=== PATIENT | female | born 1980 | race Caucasian/White ===

== ENCOUNTER → 2016-11-10 | Outpatient (CLI) | payer BC ==
[~2016-11-10] MED LIST: BCPILLS PO; MULTTAB58 PO
--- NOTE | 2016-11-10 14:47 | MAMMOGRAPHY REPORT ---
BILATERAL DIGITAL DIAGNOSTIC MAMMOGRAM TOMOSYNTHESIS WITH CAD: 11/10/2016 CLINICAL HISTORY: The patient reports nonfocal bilateral intermittent burning breast pain for approxi mately 2 weeks. She denies any associated palpable lump, nipple discharge, or other symptoms. TECHNIQUE: Breast tomosynthesis in addition to standard 2D mammography was performed. Current study was also evaluated with a Computer Aided Detection (CAD) system. Bilateral CC and MLO 2-D and tomosy nthesis images were obtained. COMPARISON: No prior exams were available for comparison. BREAST COMPOSITION: There are scattered areas of fibroglandular density in both breasts. FINDINGS: There are no suspicious masses, calcifications, or areas of architectural distortion noted in either breast. As the pain is nonfocal and diffuse bilaterally, targeted ultrasound was not perf ormed. IMPRESSION: ACR BI-RADS CATEGORY 1: NEGATIVE There is no mammographic evidence of malignancy in either breast. Recommend clinical follow-up for b ilateral intermittent breast pain, and recommend routine bilateral screening mammograms starting at t he age of 40 unless otherwise clinically indicated. The patient has been verbally notified of the results. Approximately 10% of breast cancers are not detected with mammography. A negative mammographic report should not delay biopsy if a clinically suggestive mass is present. Sonja Dunham M.D. ah/:11/10/2016 10:12:37 Textile Engineer: Sharmila ATYLOR)(Srinivas), [facility] letter sent: Normal 1/2 BI-RADS Code: ACR BI-RADS Category 1: Negative
== END | disposition home or self-care (01) ==
LOC: C.MAMM 09:34
PROVIDERS: ATTEND Physician Assistant
DX: N64.4 Mastodynia (principal)

== ENCOUNTER → 2016-11-26 | Outpatient (CLI) | payer BC ==
--- NOTE | 2016-11-26 12:49 | DIAGNOSTIC IMAGING REPORT ---
RIGHT SHOULDER MIN 2 VIEWS CLINICAL HISTORY: RIGHT SHOULDER PAIN Right trauma. Pain. COMPARISON: None. DISCUSSION: The bones and joint spaces appear intact. There is no evidence of fracture, dislocation or bony disease. There is no evidence for soft tissue swelling. IMPRESSION: Negative study. Electronically signed by: Yobani Kirby M.D. 11/26/2016 12:47 PM Dictated Date/Time: 11/26/2016 12:47 PM
== END | disposition home or self-care (01) ==
LOC: C.RDSM 14:50
PROVIDERS: ATTEND Physician Assistant
DX: M25.511 Pain in right shoulder (principal)

== ENCOUNTER → 2017-05-12 | Day surgery (SDC) | payer BC ==
[2017-05-11 11:49] VITALS: Ht 165.1 cm; Wt 86.4 kg
--- NOTE | 2017-05-11 15:42 | History and Physical: Surg Cnt ---
History & Physical Date May 11, 2017. Chief Complaint sinusitis History of Present Illness The patient is a 36 year old female with complaints of chronic sinusitis s/p surgery by santana Steele Additional History Hepatic Disease: No Endocrine Disorder: No Kidney Disease: No Hypertension: No Heart Disease: No Bleeding Tendencies: No Infectious Diseases: No Allergies Coded Allergies: Indomethacin (Verified Allergy, Unknown, SHORTNESS OF BREATH, 05/11/17) Yeast (Verified Allergy, Unknown, INCREASES INFLAMMATION, 05/11/17) Home Medications Scheduled Azelastine HCl-Fluticasone Pro (Dermacinrx Azenase Usama 137 & 50 Mcg/Act), 1 SPRAY NA HS Cetirizine Hcl (Zyrtec), 10 MG PO HS Levonorgestrel (Iud) (Mirena), 1 DOSE PV UD Multiple Vitamin (Multivitamin), 1 TAB PO QPM Physical Examination Skin: warm/dry, no rash Eyes: normal inspection, EOMI, sclerae normal ENT: normal ENT inspection, pharynx normal Head: normocephalic, atraumatic Neck: supple, no adenopathy, trachea midline Respiratory/Chest: lungs clear, normal breath sounds, no respiratory distress Cardiovascular: regular rate, rhythm, no edema, no murmur Abdomen / GI: normal bowel sounds, non tender Back: normal inspection Extremities: normal inspection, normal range of motion Neurologic/Psych: no motor/sensory deficits, alert, normal reflexes, oriented x 3 Diagnosis chronic sinusitis Plan of Treatment endoscopic sinus surgery
[~2017-05-12] VITALS: Ht 165.1 cm; Wt 86.4 kg
[~2017-05-12] MED LIST changes: +ATROPINE SULFATE 0.1 MG/ML 5ML SYR IV PRN; +AZEL1.5M; +AZIT250T PO; -BCPILLS PO; +CEFAZOLIN 1000MG IV PUSH 5 ML IV SCH; +CEFAZOLIN SOD 1 GM VIAL ONE; +CETI10TA10 PO; +DEXAMETHASONE SOD INJ 4 MG/ML VIAL ONE; +EpHEDrine SULFATE INJ 50 MG/ML AMP IV PRN; +EpINEphrine INJ 1MG/ML AMP 1 MG/ML AMP ONE; +FENTANYL CITRATE INJ 50 MCG/1 ML 2 ML VIAL IV PRN; +FENTANYL CITRATE INJ 50 MCG/1 ML 2 ML VIAL ONE; +GLYCOPYRROLATE INJ 0.2 MG/ML VIAL ONE; +HYDROmorphone INJ 1 MG/ML SYR IV PRN; +LACTATED RINGER'S 1000ML 1,000 ML IV SCH; +LEVO1IUD2 PV; +LIDO 2%/EPINEPHRINE 1:100000 20 ML VIAL INFIL ONE; +LIDOCAINE 4% MPF SOAK 5 ML = 1 DOSE TOP ONE; +LIDOCAINE HCL 2% 2 ML VIAL (20MG/ML) ONE; +METH4PAK PO; +MIDAZOLAM HCL 1 MG/ML 2ML VIAL ONE; +NAPR1TAB9 PO; +NEOSTIGMINE METHYLSULFATE 5 MG/5 ML SYR ONE; +ONDANSETRON INJ 2 MG/ML 2 ML VIAL IV PRN; +ONDANSETRON INJ 2 MG/ML 2 ML VIAL ONE; +OXYC-57 PO; +OXYCODONE/ACETAMINOPHEN 5-325 TAB PO PRN; +PATIENT'S HEIGHT AND/OR WEIGHT NEEDED SCH; +PROPOFOL IV EMULSION 10 MG/ML 20 ML VIAL IV ONE; +SODIUM CHLORIDE 0.9% 1000ML 1,000 ML IV SCH; +SODIUM CHLORIDE 0.9% INJ 10 ML VIAL ONE
--- NOTE | 2017-05-12 11:38 | History & Physical Bridge Note ---
H&P Re-Evaluation Bridge Note: I have examined the patient, reviewed the History & Physical and in the interval since the performance of the History & Physical I have noted the following changes of clinical significance: No changes noted
--- NOTE | 2017-05-12 13:51 | [facility] Post Operative Brief Note ---
Immediate Operative Summary Operative Date May 12, 2017. Pre-Operative Diagnosis Chronic Sinusitis Post-Operative Diagnosis Same Procedure(s) Performed R and L frontal, total ethmoid and maxillary sinusotomies Surgeon Dr. Esteban Clinical Trial Associate Surgeon(s) None Estimated Blood Loss 30ML Findings osteitis with stenosis, missed maxillary ostia syndrome Specimens None Anesthesia GET Complication(s) None Disposition Recovery Room / PACU
--- NOTE | 2017-05-12 13:54 | Discharge Instructions-SurgCtr ---
Discharge Instructions Date of Service May 12, 2017. Visit Reason for Visit: Chronic Sinusitis Discharge Discharge Diagnosis / Problem: same Discharge Goals Goal(s): Improve function Activity Recommendations Activity Limitations: resume your previous activity Anesthesia . Post Anesthesia Instructions: If you have had General Anesthesia or IV Sedation: * Do not drive today. * Resume driving when surgeon permits. * Do not make important decisions or sign legal documents today. * Call surgeon for: 1. Temperature elevations greater than 101 degrees F. 2. Uncontrollable pain. 3. Excessive bleeding. 4. Persistent nausea and vomiting. 5. Medication intolerance (nausea, vomiting or rash). * For nausea and vomiting use only clear liquids such as: tea, soda, bouillon until nausea subsides, then gradually increase diet as tolerated. * If you have any concerns or questions, call your surgeon's office. If physician is unavailable and it is an emergency, call 911 or go to the nearest emergency room. . Diet Recommendations Home Diet: no limitations Procedures Procedures Performed: R and L frontal, total ethmoid and maxillary sinusotomies Pending Studies Studies pending at discharge: no Medical Emergencies . Who to Call and When: Medical Emergencies: If at any time you feel your situation is an emergency, please call 911 immediately. . Non-Emergent Contact Non-Emergency issues call your: Primary Care Provider . . "Provider Documentation" section prepared by Cady Esteban. . [place] Drug Monitoring Program Search Results: no issues identified
[2017-05-12 14:45] VITALS: TEMP 37
[2017-05-12 15:16] VITALS: BP 117/76; PULSE 68; O2SAT 96
--- NOTE | 2017-05-12 15:28 | Anesthesiology Progress Note ---
Anesthesia Post Op Note Date & Time May 12, 2017 at 15:27 Vital Signs Pain Intensity: 0 Vital Signs Past 12 Hours Date Time Temp Pulse Resp B/P (MAP) Pulse Ox O2 Delivery O2 Flow Rate FiO2 05/12/17 15:16 68 20 117/76 (90) 96 Room Air 05/12/17 14:45 37.0 65 18 115/74 (88) 96 Room Air 05/12/17 14:36 36.9 83 14 133/76 95 Room Air 05/12/17 14:36 76 15 05/12/17 14:36 74 15 133/76 96 05/12/17 14:31 74 15 118/74 95 05/12/17 14:31 75 15 05/12/17 14:26 75 24 05/12/17 14:26 76 24 119/74 100 05/12/17 14:21 68 12 120/71 100 05/12/17 14:21 68 12 05/12/17 14:16 73 14 120/76 100 05/12/17 14:16 74 14 05/12/17 14:11 70 10 120/71 100 05/12/17 14:11 71 10 05/12/17 14:06 75 26 128/70 100 05/12/17 14:06 74 26 05/12/17 14:01 73 10 121/71 100 05/12/17 14:01 74 10 05/12/17 13:56 82 21 125/71 100 05/12/17 13:56 82 21 05/12/17 13:51 86 16 137/75 100 05/12/17 13:51 86 16 05/12/17 13:46 93 16 05/12/17 13:46 94 16 129/68 100 05/12/17 13:42 126/75 05/12/17 13:41 106 05/12/17 13:41 36.5 100 8 126/75 100 Humidified Oxygen 6 Mask 05/12/17 13:41 106 100 05/12/17 10:04 36.9 75 18 117/77 (90) 98 Room Air Notes Mental Status: alert / awake / arousable, participated in evaluation Pt Amnestic to Procedure: Yes Nausea / Vomiting: adequately controlled Pain: adequately controlled Airway Patency, RR, SpO2: stable & adequate BP & HR: stable & adequate Hydration State: stable & adequate Anesthetic Complications: no major complications apparent
--- NOTE | 2017-05-12 15:32 | OPERATIVE REPORT ---
DATE OF OPERATION: 05/12/2017 PREOPERATIVE DIAGNOSIS: Chronic sinusitis. POSTOPERATIVE DIAGNOSIS: Same. PROCEDURE: Right and left frontal, right and left total ethmoid and right and left maxillary sinus antrostomy. SURGEON: Dr. Esteban. ANESTHESIA: General endotracheal. COMPLICATIONS: None. BLOOD LOSS: 30 mL. HISTORY: This 36-year-old lady presented with chronic sinusitis. She had previously had maxillary sinusotomy and ethmoidectomy twice by another surgeon. Most recent was in 03/06/2017. She developed severe headaches in the frontal region and recurrent episodes of sinusitis. CT scan again documented sinusitis and endoscopy showed adhesions and polyps blocking the ostiomeatal complex and also blocking the nasal frontal ducts. PROCEDURE: The patient brought to the operating room and placed in supine position and general endotracheal anesthesia was induced, prepped, draped in usual sterile manner. [employer] device calibrated and used for the entire procedure. The left nasofrontal duct was cannulated with guidewire and dilated using the 6 mm balloon with [employer] computer guidance. The guidewire was left in place as a marker as the balloon was withdrawn. Frontal sinusotomy was performed by removing the anterior wall and then the posterior wall of the agger nasi cell with the shaver coupled with the [employer] guidance system. The mucosa in the nasofrontal duct was left intact. There were multiple residual air cells and significant amount osteitis and adhesions blocking all the ethmoids. Therefore, the posterior most ethmoid air cells was identified and then the skull base and lamina papyracea were identified with the [employer] device These structures were followed anteriorly exonerating all the posterior and all the anterior ethmoid air cells removing a significant amount of scar tissue, adhesions and significant amount of osteitis. 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 The primary ostia was located using the seeker and then opened and connected to the antrostomy opening using the backbiting forceps and then using the shaver to create a 1 common cavity. The right frontal sinusotomy, total ethmoidectomy, and maxillary sinus antrostomy was performed in a similar manner. The contour stents were placed in the nasofrontal ducts. The patient tolerated the procedure well and was taken to recovery area in satisfactory condition. I attest to the content of the Intraoperative Record and any orders documented therein. Any exception s are noted below.
== END | disposition home or self-care (01) ==
LOC: X.SURG 09:42
PROVIDERS: ATTEND Otolaryngology
DX: J32.9 Chronic sinusitis, unspecified (principal)

== ENCOUNTER → 2017-09-30 | Day surgery (SDC) | payer OTHER ==
[2017-09-23 10:09] VITALS: Ht 165.1 cm; Wt 86.4 kg
[~2017-09-30] VITALS: Ht 165.1 cm; Wt 86.4 kg
[~2017-09-30] MED LIST changes: -AZIT250T PO; +BUPIVACAINE 0.5 % 5 MG/1 ML MPF 30ML VIAL ONE; -CEFAZOLIN 1000MG IV PUSH 5 ML IV SCH; +CEFAZOLIN 2000MG IV PUSH 15 ML IV SCH; -CEFAZOLIN SOD 1 GM VIAL ONE; -EpHEDrine SULFATE INJ 50 MG/ML AMP IV PRN; +EpINEphrine HCL INJ 1 MG/ML 1ML SYRINGE ONE; -HYDROmorphone INJ 1 MG/ML SYR IV PRN; -LIDO 2%/EPINEPHRINE 1:100000 20 ML VIAL INFIL ONE; -LIDOCAINE 4% MPF SOAK 5 ML = 1 DOSE TOP ONE; +LIDOCAINE/EPINEPHRINE 1% 20 ML VIAL ONE; -METH4PAK PO; +MoRPHine SULFATE 4 MG/ML 1 ML CARP\\VIAL IV PRN; -OXYC-57 PO; -PATIENT'S HEIGHT AND/OR WEIGHT NEEDED SCH; -PROPOFOL IV EMULSION 10 MG/ML 20 ML VIAL IV ONE; +PROPOFOL IV EMULSION 10 MG/ML 20 ML VIAL ONE; +ROCURONIUM BROMIDE 10 MG/ML 5 ML VIAL ONE; +ROPIVACAINE 0.5% 5 MG/ML 30 ML VIAL ONE; -SODIUM CHLORIDE 0.9% 1000ML 1,000 ML IV SCH; -SODIUM CHLORIDE 0.9% INJ 10 ML VIAL ONE
--- NOTE | 2017-09-30 12:48 | [facility] Post Operative Brief Note ---
Immediate Operative Summary Operative Date September 30, 2017. 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 2) Coricoidplasty. 3) SubAcromial Decompression. 4) Open Distal Clavicle Excision. 5) Exam Under Anesthesia Surgeon Dr. Silva Chronometer Tester Surgeon(s) Bud Laureano, PA-C Estimated Blood Loss 11ML Findings Consistent with Post-Op Diagnosis Fluids (cc crystalloids) 1500 Specimens A. Right Shoulder Distal Clavicle Drains None Anesthesia Type General Regional Complication(s) none Disposition Disposition: Recovery Room / PACU (Stable)
--- NOTE | 2017-09-30 12:49 | [facility] Operative Report ---
Operative Report Operative Date September 30, 2017. 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 2) Coricoidplasty. 3) SubAcromial Decompression. 4) Open Distal Clavicle Excision. 5) Exam Under Anesthesia Surgeon Dr. Silva King Maker Surgeon(s) Bud Laureano, LUNA Estimated Blood Loss 11ML Findings The Right shoulder was then examined under anesthesia and it exhibited: Forward flexion and abduction to 160; external rotation 95; internal rotation 60. There was no noted instability. Posterior and anterior translation was 1+ and they had no sulcus sign and was symmetric to their other side. The diagnostic arthroscopy commenced with the following findings: 1. The biceps anchor there was fraying, SLAP type I tear. 2. The anterior labrum was intact. 3. The inferior labrum was intact. 4. The inferior pouch showed no loose bodies. 5. The posterior labrum was intact. 6. The articular surface of the glenoid had some type II changes. 7. The articular surface of humeral head was intact. 8. The long Head of the Biceps was normal. 9. The Subscapularis tendon had some fraying superiorly, there was limited space between the coracoid and the subscapularis. 10. The Supraspinatus tendon was intact. 11. The Infraspinatus and Teres Minor were normal. 12. The Subacromial space showed bursitis and a bony spur anteriorly. Fluids 1500 Specimens A. Right Shoulder Distal Clavicle Drains None Anesthesia Type General Regional Complication(s) none Disposition Recovery Room / PACU (Stable) Indications This is a pleasant 36-year-old female who has been having long-standing right anterior shoulder pain at the AC joint and coracoid that has failed conservative management. They have MRI and clinical findings suggestive of AC joint arthritis, possible SLAP tear, coracoid/subacromial impingement. After a lengthy discussion regarding their options of conservative versus operative management, they have elected to proceed with surgery. The risks of surgery were discussed and include but not limited to: Infection, bleeding, nerve damage , continued pain, progression of arthritis, stiffness, decreased level of activity, and deep vein thrombosis. The patient understood all of their options and the risks of surgery and would like to proceed. The informed consent was signed. Description of Procedure The patient was taken to the operating room and following administration of her interscalene nerve block and general anesthetic, a multidisciplinary time-out was performed identifying my initials on the right shoulder as the correct and operative limb. The patient was then placed in beach chair position with all of their bony prominences well-padded. They were then prepped and draped in the usual orthopedic sterile fashion. All of the bony landmarks were marked as well as the planned incisions. The planned incisions were injected with a 50:50 mixture of 0.5% Marcaine plain and 1% Lidocaine with Epinephrine for a total of 10 cc. Then using a spinal needle which was placed intra-articularly into the glenohumeral joint and insufflated to 35 cc and there was noted appropriate back flow, an additional 15 cc were placed. The standard posterior portal was made with an 11-blade. Trocar was introduced into the glenohumeral joint in the standard fashion. Using a spinal needle, the anterior portal was placed lateral to the coracoid under direct visualization between the Long Head of the Biceps and Subscapularis. A 7mm cannula was then placed. The intra-articular portion of shoulder was addressed first with debriding any fraying from the labrum and subscapularis fraying, as well as the loose articular cartilage from the glenoid. These were probed and found to be stable. Using a cool pack, the rotator interval was opened and the coracoid was identified and debrided of soft tissue. Then using a small bur coracoid plasty was performed in standard fashion. The arthroscope was then placed subacromially. There was bursitis noted. A lateral portal was created under direct visualization with a spinal needle. Once the bursitis was removed, the bursal side of the rotator cuff was intact. The small bony spur that was identified was addressed with cutting block technique. There was noted improvemed space. All of the instruments were removed. Our attention was drawn to the AC joint and making a 3 cm incision in-line with the anterior portal incision was made and carried down to the Superior AC joint ligament. A longitudinal incision was made in-line with the fibers of the superior AC joint ligament. The posterior and anterior aspect of the clavicle was exposed and using a sagittal saw the distal 7 mm was removed. A rasp was used to smooth out the edges. The wound was copiously irrigated. Bone wax was placed along the exposed bone. There was adequate space. The Superior AC joint ligament was closed with 0 Vicryl. The subcutaneous layer was closed with 3-0 Vicryl. The skin was closed with a running subcuticular stitch using 3-0 Prolene. Steri strips were placed over top. The portal sites were closed with 3-0 Prolene in a standard fashion. Xeroform was placed overtop followed by 4 x 4's, ABDs, and foam tape. The patient was placed in a sling. The sponge and needle counts were correct. POSTOPERATIVE INSTRUCTIONS: The patient will follow-up with physical therapy in two days. The patient will wear sling out in public and for comfort only. The patient will follow-up with me in 10 to 15 days. I attest to the content of the Intraoperative Record and any orders documented therein. Any exceptions are noted below.
--- NOTE | 2017-09-30 12:54 | Discharge Instructions-SurgCtr ---
Discharge Instructions Date of Service September 30, 2017. Visit Reason for Visit: Right Shoulder Acromioclavicular O.a., Coracoid Im Discharge Discharge Diagnosis / Problem: Status post Right shoulder scope, open distal clavicle excision Discharge Goals Goal(s): Decrease discomfort, Improve function, Increase independence Medications Stopped Medications Name(s): alewin stopped last week. Activity Recommendations Activity Limitations: per Instructions/Follow-up section May Resume Sexual Activity: when tolerated Shower/Bathe: may shower/bathe in 3 days Driving or Machine Use: Not while on Narcotics or in sling Anesthesia . Post Anesthesia Instructions: If you have had General Anesthesia or IV Sedation: * Do not drive today. * Resume driving when surgeon permits. * Do not make important decisions or sign legal documents today. * Call surgeon for: 1. Temperature elevations greater than 101 degrees F. 2. Uncontrollable pain. 3. Excessive bleeding. 4. Persistent nausea and vomiting. 5. Medication intolerance (nausea, vomiting or rash). * For nausea and vomiting use only clear liquids such as: tea, soda, bouillon until nausea subsides, then gradually increase diet as tolerated. * If you have any concerns or questions, call your surgeon's office. If physician is unavailable and it is an emergency, call 911 or go to the nearest emergency room. . Instructions / Follow-Up Instructions / Follow-Up Heidi 10/05/17 @ 12:[address] Silva 10/11/2017 @ 10:45 am. Diet Recommendations Home Diet: resume previous diet Procedures Procedures Performed: 1) Right Shoulder Arthroscopy, Labral Debridement , Sub-Scapular Debridement. 2) Coricoidplasty. 3) SubAcromial Decompression. 4) Open Distal Clavicle Excision. 5) Exam Under Anesthesia Pending Studies Studies pending at discharge: no Medical Emergencies . Who to Call and When: Medical Emergencies: If at any time you feel your situation is an emergency, please call 911 immediately. . Non-Emergent Contact Non-Emergency issues call your: Surgeon Call Non-Emergent contact if: temperature is above 101.5, your pain is not controlled, wound has increased drainage, wound has increased redness . . "Provider Documentation" section prepared by Santos Silva. .
[2017-09-30 14:10] VITALS: TEMP 36.6
[2017-09-30 14:43] VITALS: BP 103/69; PULSE 84; O2SAT 97
--- NOTE | 2017-09-30 14:47 | Anesthesia Progress Nt - [facility] ---
Anesthesia Post Op Note Date & Time September 30, 2017 at 14:47 Vital Signs Pain Intensity: 0 Vital Signs Past 12 Hours Date Time Temp Pulse Resp B/P (MAP) Pulse Ox O2 Delivery O2 Flow Rate FiO2 09/30/17 14:43 84 14 103/69 (80) 97 Room Air 09/30/17 14:10 36.6 84 16 115/75 (88) 94 Room Air 09/30/17 14:03 89 24 94 09/30/17 14:03 36.4 88 24 09/30/17 14:00 113/70 09/30/17 13:58 75 21 09/30/17 13:58 73 21 94 09/30/17 13:55 117/70 09/30/17 13:53 82 24 09/30/17 13:53 81 24 95 09/30/17 13:50 116/66 09/30/17 13:48 78 21 09/30/17 13:48 76 21 94 09/30/17 13:45 119/66 09/30/17 13:43 83 25 97 09/30/17 13:43 83 25 09/30/17 13:40 112/69 09/30/17 13:38 75 20 99 09/30/17 13:38 75 20 09/30/17 13:35 117/66 09/30/17 13:33 77 23 99 09/30/17 13:33 75 23 09/30/17 13:30 116/70 09/30/17 13:28 74 21 09/30/17 13:28 72 21 99 09/30/17 13:25 116/65 09/30/17 13:23 72 23 09/30/17 13:23 72 23 99 09/30/17 13:20 113/61 09/30/17 13:20 127/71 09/30/17 13:19 36.2 66 16 113/61 99 Mask 6 09/30/17 10:33 85 09/30/17 10:33 84 20 100 09/30/17 10:32 95 29 100 09/30/17 10:32 93 09/30/17 10:30 131/96 09/30/17 10:28 122/83 09/30/17 10:27 87 09/30/17 10:27 85 0 99 09/30/17 10:22 88 0 98 09/30/17 10:22 88 09/30/17 10:17 75 09/30/17 10:17 77 0 98 09/30/17 10:12 0 09/30/17 10:07 0 09/30/17 10:02 0 09/30/17 09:57 0 09/30/17 09:52 0 09/30/17 09:47 0 09/30/17 09:42 0 09/30/17 09:37 0 09/30/17 09:32 0 09/30/17 09:27 0 09/30/17 09:22 0 09/30/17 09:17 0 09/30/17 09:12 0 09/30/17 09:07 0 09/30/17 09:02 0 09/30/17 08:57 0 09/30/17 08:52 0 09/30/17 08:47 0 09/30/17 08:42 0 09/30/17 08:37 0 09/30/17 08:12 36.9 74 16 124/84 (97) 98 Room Air Notes Mental Status: alert / awake / arousable, participated in evaluation Pt Amnestic to Procedure: Yes Nausea / Vomiting: adequately controlled Pain: adequately controlled Airway Patency, RR, SpO2: stable & adequate BP & HR: stable & adequate Hydration State: stable & adequate Anesthetic Complications: no major complications apparent
== END | disposition home or self-care (01) ==
LOC: X.SURG 07:59
PROVIDERS: ATTEND Orthopaedic Surgery Sports Medicine
DX: S43.491A Other sprain of right shoulder joint, initial encounter (principal); M25.811 Other specified joint disorders, right shoulder; M19.011 Primary osteoarthritis, right shoulder; Z88.6 Allergy status to analgesic agent; E66.9 Obesity, unspecified; X58.XXXA Exposure to other specified factors, initial encounter